=== PATIENT | male | born 1995 | race African-American/Black ===

== ENCOUNTER 2020-08-13 05:48 | Emergency (ER) | payer SELFPAY ==
[2020-08-13 06:44] VITALS: BP 138/85; PULSE 86; RESP 16; O2SAT 98; BMI 26.0
--- NOTE | 2020-08-13 07:02 | ED.GENADULT ---
HPI - General Adult General Chief complaint: Overdose Time Seen by Provider: 08/13/20 06:46 Source: EMS and RN notes reviewed Mode of arrival: EMS Limitations: other History of Present Illness HPI narrative: 25-year-old male who presents emergency department for evaluation of overdose. Information comes from EMS and the nurse's notes since the patient is uncooperative and refuses to talk to ED staff. The patient arrived via EMS status post opiate overdose. Per EMS patient was using a lot of heroin tonight. Patient was found in the living room floor by a friend who called 911. First responders were the police and they administered 12 mg of intranasal Narcan prior to EMS arrival. Is also question of the patient drinking alcohol as well. After administration Narcan the patient was lethargic, arousable to pain maintaining his airway and had stable vital signs during transport. At the time of my evaluation, the patient was lying on the stretcher, he was somnolent but arousable. He insisted that I go away in leave him alone and not ask him any questions. The patient was actively vomiting on initial presentation to the emergency department and was treated with Zofran 4 mg IV. Related Data Allergies Allergy/AdvReac Type Severity Reaction Status Date / Time No Known Allergies Allergy Verified 08/13/20 06:55 Review of Systems Review of Systems: Yes all other systems are reviewed and are negative [facility] Past Medical History [facility] Narrative: Unobtainable since patient is uncooperative. Social History Social History Advance Directives: No Advance Directives Information Provided: No Physical Exam Vital Signs: Vital Signs: Last Vital Signs Pulse 85 08/13/20 09:33 Resp 16 08/13/20 09:33 BP 138/81 08/13/20 09:33 Pulse Ox 97 08/13/20 09:33 Body Mass Index 26.0 Const: General: other (Somnolent, arousable, uncooperative) Orientation/consciousness: oriented to person HENMT: Head: Yes normal to inspection, Yes normocephalic and Yes atraumatic Ears: external ears normal General nose exam: Normal external nose present Face and sinus: Yes normal facial exam Mouth: Normal oral and palatal mucosa present Throat: Yes posterior oropharynx normal Eyes: Periorbital: periorbital findings normal Eyelids: Yes eyelids normal Conjunctivae: conjunctivae normal Sclerae: sclerae normal Corneas: corneas normal Pupils: Equal, round and reactive pupils present Direct Ophthalmoscopy: normal light reflex Neck: Neck: Yes full ROM, Yes no lymphadenopathy, Yes trachea midline and Yes supple Chest: Chest palpation & inspection: normal inspection of the chest and normal palpation of entire chest wall Resp: Effort & Inspection: normal respiratory effort and able to speak in complete sentences Auscultation: clear to auscultation bilaterally Cardio: Rate: regular rate Rhythm: regular rhythm Heart sounds: S1 normal heart sound present, S2 normal heart sound present and no murmurs GI: Inspection: Yes normal to inspection Palpation (GI): Soft to palpation, nontender, no guarding, not rigid and No hepatosplenomegaly present : General: Yes no CVA tenderness Back/Spine/Pelvis: Back: no CVA tenderness Cervical Spine: normal cervical lordosis Thoracic/Lumbar Spine: thoracic and lumbar spine normal to inspection Skin: Lesions: no lesions Rashes: no rashes Wounds: no wounds Neuro: General: oriented to person Cranial nerves: Yes Equal, round and reactive pupils present Motor exam (neuro): 5/5 motor strength present throughout Extrem: General: Yes normal to inspection and Yes full ROM Psych: Appearance: well kempt Speech and movement: Normal speech and movement present Affect: Hostile affect present Attitude: Belligerent attititude/behavior present Course Course Course Narrative: 25-year-old male brought to the emergency department by EMS for evaluation of opiate overdose and possible alcohol intoxication. The patient did receive Narcan intranasally by 1st responders. On presentation to the emergency department patient had active nausea and vomiting which was treated with Zofran 4 mg IV and normal saline x1 L. the patient continue to actively vomit and was treated with Reglan 10 mg IV and Benadryl 50 mg IV. I did order laboratory evaluation on this patient to include an alcohol level and urine toxicology screen. The patient will be kept on a cardiac and O2 saturation% monitor while he is here in the emergency department. 1038: The patient's laboratory evaluation revealed a slight elevation in his CK of 874. This could be secondary to the fact that he was lying on the floor or he may have been using drugs like cocaine which can cause an elevated CK. The patient is feeling better and does want to go home however he does not want to talk to our crisis counselors or our recovery manager. He states that he is not interested in getting into a detox program or getting help with his drug use. The patient will be sent home with intranasal Narcan and I did tell him that if he continues to use narcotic drugs he should make sure that there is always a sober observe her who can administer intranasal Narcan call 911 in the event that he stops breathing. Medical Decision Making Lab Data Result diagrams: 08/13/20 08:53 08/13/20 08:53 Labs: Lab Results 08/13/20 08/13/20 08/13/20 Range/Units 08:53 08:53 08:53 WBC 7.5 (4.8-10.8) X10*3/uL RBC 4.81 (4.60-5.80) X10*6/uL Hgb 14.4 (14.0-18.0) g/dl Hct 41.0 L (42-52) % MCV 85.2 (80-98) fL MCH 29.9 (27.0-33.0) pg MCHC 35.1 (31.0-36.0) g/dl RDW 12.4 (11.0-16.0) % Plt Count 424 H (160-400) X10*3/uL MPV 9.1 L (9.4-12.4) fL Absolute Nucleated RBC 0.000 (0.0-0.012) X10*3/uL Nucleated RBC % (auto) 0.0 (0.0-0.2) /100WBC Sodium 142 (135-145) mmol/L Potassium 3.7 (3.3-5.1) mmol/L Chloride 107 (96-108) mmol/L Carbon Dioxide 20 L (22-29) mmol/L Anion Gap 19 (12-20) BUN 14 (9-16) mg/dL Creatinine 0.83 (0.5-1.4) mg/dL Estim Creat Clear Calc 126.0 Estimated GFR > 60 Random Glucose 69 (60-115) mg/dL Calcium 9.3 (8.4-10.2) mg/dL Total Bilirubin 0.4 (0.0-1.0) mg/dL AST 39 H (5-37) U/L ALT 22 (0-40) U/L Alkaline Phosphatase 137 H (39-117) U/L Total Creatine Kinase 874 H (38-174) U/L Total Protein 7.6 (6.5-8.0) g/dL Albumin 4.3 (3.5-5.0) g/dL Ethyl Alcohol 40 mg/dL Discharge Plan Discharge Clinical Impression: Opiate or related narcotic overdose Qualifiers: Encounter type: initial encounter Injury intent: accidental or unintentional Qualified Code(s): T40.601A - Poisoning by unspecified narcotics, accidental (unintentional), initial encounter Patient Disposition: Home, Self-Care Instructions: Narcotic Safety (ED), Narcotic Use Disorder (ED) Additional Instructions: According to the paramedics, you were found lying on the floor by a friend who then called 911. The 1st responders gave you multiple doses of intranasal Narcan which woke you up. Your presentation is consistent with an unintentional/accidental narcotic overdose. I did offer to have you speak to our crisis counselor or our recovery manager but you refused at this time. If you change your mind and want to get help with your narcotic use disorder, please return to the emergency department and we can have you talk to 1 of our counselors. I am sending you home with intranasal Narcan. If you continue to use narcotic drugs then you should make sure that there is a sober person with you that is not using drugs so that this person can call 911 and that can administer intranasal Narcan in the event that you passed out become unresponsive. Follow-up with your doctor in 2 days. Please return to the emergency department if your symptoms get worse or if you develop any symptoms that are concerning to you.
[2020-08-13] MEDS: diphenhydrAMINE HCL 50 MG/ML VIAL IVPUSH (07:14)
[2020-08-13] MEDS: Metoclopramide HCl 10 MG/2 ML VIAL IVPUSH (07:14)
[2020-08-13 07:20] VITALS: BP 147/90; PULSE 103; RESP 16; O2SAT 98
--- NOTE | 2020-08-13 08:34 | PC.NURSE ---
PT COVERED IN [place] FROM HEAD TO TOE, PT CLEANED UP AND CLEAN HOSPITAL ATTIRE APPLIED AND CLEAN LINENS ON THE BED
[2020-08-13 09:01] LABS: Hemoglobin 14.4 g/dl (14.0-18.0); Mean Corpuscular HGB Conc 35.1 g/dl (31.0-36.0); Mean Corpuscular Hemoglobin 29.9 pg (27.0-33.0); Mean Corpuscular Volume 85.2 fL (80-98); Mean Platelet Volume 9.1 fL (9.4-12.4); Platelet Count 424 X10*3/uL (160-400); Red Blood Count 4.81 X10*6/uL (4.60-5.80); Red Cell Distribution Width 12.4 % (11.0-16.0); White Blood Count 7.5 X10*3/uL (4.8-10.8)
[2020-08-13 09:25] LABS: Ethanol 40 mg/dL
[2020-08-13 09:28] LABS: Alanine Aminotransferase 22 U/L (0-40); Albumin Level 4.3 g/dL (3.5-5.0); Alkaline Phosphatase 137 U/L (39-117); Anion Gap 19 (12-20); Aspartate Amino Transferase 39 U/L (5-37); Bilirubin Total 0.4 mg/dL (0.0-1.0); Blood Urea Nitrogen 14 mg/dL (9-16); Calcium 9.3 mg/dL (8.4-10.2); Carbon Dioxide 20 mmol/L (22-29); Chloride 107 mmol/L (96-108); Estimated Glomerular Filt Rate > 60; Glucose Random 69 mg/dL (60-115); Potassium 3.7 mmol/L (3.3-5.1); Sodium 142 mmol/L (135-145); Total Protein 7.6 g/dL (6.5-8.0)
[2020-08-13 09:33] VITALS: BP 138/81; PULSE 85; RESP 16; O2SAT 97
--- NOTE | 2020-08-13 09:34 | PC.NURSE ---
pt is currently asleep, respirations even and unlabored, vs stable
[2020-08-13 10:48] LABS: Glucose, Whole Blood 68 mg/dL (60-115)
--- NOTE | 2020-08-13 11:00 | PC.NURSE ---
REPORT RECEIVED FROM AIDEN RONQUILLO, PT CURRENTLY SLEEPING. PT IS NOW [address] BY [facility] [employer], AWAITING PD.
--- NOTE | 2020-08-13 11:53 | MHC.RECOVSUP ---
? Reason for consult:Continuity of care o Current location:ED 04 o Identified substance use concern:Heroin - Overdose - Withdrawal - Support ? Intervention: o ? Plan: o Follow up tomorrow ? Additional information:Patient to be [address].......patient waiting for police to arrive. Patient refused treatment.
--- NOTE | 2020-08-13 12:46 | PC.NURSE ---
[employer] call patient [address], [address] their [address] now.
[2020-08-13] MEDS: Naloxone HCl Nasal TAKE HOME 4 MG SPRAY NOSTRILALT (13:17)
== END 2020-08-13 13:19 | disposition home or self-care (01) ==
PROVIDERS: Emergency Provider Emergency Medicine Emergency Medical Services
DX: T40.1X1A Poisoning by heroin, accidental (unintentional), initial encounter (principal); R53.83 Other fatigue; Y92.008 Other place in unspecified non-institutional (private) residence as the place of occurrence of the external cause; F10.920 Alcohol use, unspecified with intoxication, uncomplicated; Y90.2 Blood alcohol level of 40-59 mg/100 ml; R11.10 Vomiting, unspecified
CPT/HCPCS: 36415; 80053; 80320; 82550; 82947; 85027; 96374; 96375; 99284; J1200; J2765